=== PATIENT | female | born 1940 | race Caucasian/White ===

== ENCOUNTER 2017-10-18 08:23 | Outpatient (CLI) | payer MEDICARE, MEDICAID ==
--- NOTE | 2017-10-18 11:59 | PET ---
PET CT: HISTORY: 77-year-old female with lymphoma. Exam requested for initial staging. TECHNIQUE: PET scanning with CT attenuation correction was performed from the base of the brain through the prox imal thighs following the intravenous administration of 12 mCi [id number] in the left antecubital fossa. Imaging was performed after an uptake interval of 51 minutes. COMPARISON: None. CORERLATION: CT neck of 09/25/17. FINDINGS: Numerous hypermetabolic lymph nodes are seen. These include the cervical lymph nodes (maximum SUV 8), left supraclavicular (SUV 3), axillary (SUV 8 on the left and 5 on the right), mediastinal/prevascul ar (SUV 6.5), right hilar (SUV 7.6), right internal mammary (SUV 2.8), right paraspinal at 5-6 level (SUV 7), celiac axis (SUV 3), gastrohepatic (SUV 4.8), portocaval (SUV 4), aortocaval (SUV 2.6), and right inguinal (SUV 7). There are lymph nodes in the parotids on either side with a SUV of 8 on the left and 7 on the right. No hypermetabolic pulmonary nodules, liver, adrenal, or skeletal lesions are seen. The CT scan used for attenuation correction demonstrates a small right pleural effusion. No pericardi al effusion, left pleural effusion, or ascites is seen. 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 POS: DOMINIC
== END 2017-10-18 08:24 | disposition home or self-care (01) ==
LOC: PET 08:23
PROVIDERS: ATTEND Internal Medicine Hematology & Oncology
DX: C85.90 Non-Hodgkin lymphoma, unspecified, unspecified site (principal)
CPT/HCPCS: 78815; A9552